=== PATIENT | female | born 1965 | race Caucasian/White ===

== ENCOUNTER 2016-08-16 02:35 | Emergency (ER) | payer BC ==
[~2016-08-16] VITALS: Ht 160 cm; Wt 63.0 kg
[2016-08-16 03:10] VITALS: BP 128/95
[2016-08-16] MEDS ORDERED: IBUPROFEN 400 MG TABLET ONE (04:00)
[2016-08-16] MEDS ORDERED: CARISOPRODOL 350 MG TABLET ONE (04:01)
[2016-08-16] MEDS ORDERED: CARISOPRODOL 350 MG TABLET PO ONE (04:30)
[2016-08-16] MEDS ORDERED: IBUPROFEN 400 MG TABLET PO ONE (04:30)
== END 2016-08-16 04:11 | disposition home or self-care (01) ==
LOC: ER 02:36
DX: R51 Headache (principal); M54.12 Radiculopathy, cervical region
CPT/HCPCS: 70450-TC; A4606; Z7610

== ENCOUNTER 2022-04-07 19:30 | Emergency (ER) | payer SELFPAY ==
[~2022-04-07] VITALS: Ht 160 cm; Wt 63.5 kg
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
[2022-04-07] MEDS ORDERED: KETO10TA2 PO (20:47)
[2022-04-07] MEDS ORDERED: CYCL5TAB PO (20:47)
--- NOTE | 2022-04-07 21:07 | NUR ---
Patient discharged to home in stable condition. Written and verbal after care instructions given. Patient verbalizes understanding of instruction. pt ambulatory with a steady gait
[2022-04-07 21:16] VITALS: BP 136/75
== END 2022-04-07 21:24 | disposition home or self-care (01) ==
LOC: ER 19:37
DX: M25.512 Pain in left shoulder (principal); M54.50 Low back pain, unspecified; R07.89 Other chest pain; V49.49XA Driver injured in collision with other motor vehicles in traffic accident, initial encounter; Y93.89 Activity, other specified; Y92.413 State road as the place of occurrence of the external cause; Y99.8 Other external cause status
CPT/HCPCS: 71045-TC; 72131-TC; 73030-TC